=== PATIENT | male | born 1975 | race Caucasian/White ===

== ENCOUNTER 2021-02-28 08:26 | Day surgery (SDC) | payer MEDICAID ==
[~2021-02-28] VITALS: Ht 170.2 cm; Wt 61.8 kg
[2021-02-28] VITALS (7 sets, daily range): BP systolic 112–132; BP diastolic 65–80
[2021-02-28] MEDS ORDERED: albumin 25% 100mL bottle x 1 IV PRN (08:55)
[2021-02-28] MEDS ORDERED: CHOL20002 PO (09:05)
[2021-02-28] MEDS ORDERED: FURO40TA4 PO (09:05)
[2021-02-28] MEDS ORDERED: CALC650T22 PO (09:05)
[2021-02-28] MEDS ORDERED: PENT400T17 PO (09:05)
[2021-02-28] MEDS ORDERED: SPIR100T5 PO (09:05)
== END 2021-02-28 11:17 | disposition home or self-care (01) ==
LOC: SSTAY O 08:26
PROVIDERS: ATTEND Radiology Vascular & Interventional Radiology
DX: K70.31 Alcoholic cirrhosis of liver with ascites (principal); F12.90 Cannabis use, unspecified, uncomplicated; D75.89 Other specified diseases of blood and blood-forming organs; Z90.81 Acquired absence of spleen; F10.21 Alcohol dependence, in remission; Z87.891 Personal history of nicotine dependence; Z79.899 Other long term (current) drug therapy
CPT/HCPCS: 49083; P9047

== ENCOUNTER 2021-12-07 08:43 | Day surgery (SDC) | payer MEDICAID ==
[2021-12-02 16:44] LABS: BASOPHILS # (AUTO) 0.1 X10'3 (0-0.2); BASOPHILS % (AUTO) 1.1 % (0-1); EOSINOPHILS # (AUTO) 0.3 X10'3 (0-0.9); EOSINOPHILS % (AUTO) 3.7 % (0-6); LYMPHOCYTES # (AUTO) 2.1 X10'3 (1.1-4.8); LYMPHOCYTES % (AUTO) 23.5 % (21-51); MEAN CORPUSCULAR HEMOGLOBIN 34.7 PG (27.0-31.0); MEAN CORPUSCULAR HGB CONC 34.6 g/dL (33.0-36.5); MEAN CORPUSCULAR VOLUME 100.6 FL (78-98); MEAN PLATELET VOLUME 7.9 FL (7.4-10.4); MONOCYTES % (AUTO) 11.3 % (2-12); NEUTROPHILS # (AUTO) 5.5 X10'3 (1.8-7.7); NEUTROPHILS % (AUTO) 60.4 % (42-75); PRE OP HEMATOCRIT 41.8 % (42.0-52.0); PRE OP HEMOGLOBIN 14.4 g/dL (14.0-17.9); PRE OP PLATELET COUNT 299 X10'3 (140-440); RED BLOOD COUNT 4.15 X10'6 (4.70-6.10); RED CELL DISTRIBUTION WIDTH 13.9 % (11.5-14.5)
[2021-12-02 16:59] LABS: PRE OP INR 1.1 INR; PRE OP PROTIME 11.7 SECONDS (9.0-12.0)
[2021-12-02 17:03] LABS: ALBUMIN 3.6 G/DL (3.4-5.0); ALBUMIN/GLOBULIN RATIO 0.9 (1.1-1.5); ALKALINE PHOSPHATASE 144 IU/L (46-116); BLOOD UREA NITROGEN 27 MG/DL (7-18); BUN/CREATININE RATIO 22.7 (5.4-32.0); CALCIUM 9.3 MG/DL (8.5-10.1); CHLORIDE 104 MMOL/L (99-107); CREATININE 1.19 MG/DL (0.60-1.10); PRE OP ALT 37 U/L (30-65); PRE OP ANION GAP 8 (8-16); PRE OP AST 33 U/L (10-37); PRE OP BILIRUB, TOTAL 0.6 MG/DL (0.0-1.0); PRE OP POTASSIUM 4.4 MMOL/L (3.4-5.1); PRE OP SODIUM 140 MMOL/L (135-145); TOTAL CARBON DIOXIDE 27.6 MMOL/L (24-32); TOTAL PROTEIN 7.8 G/DL (6.4-8.2); eGFR 66 ML/MIN
[2021-12-02 17:05] LABS: PRE OP GLUCOSE 71 MG/DL (70-104)
[~2021-12-07] VITALS: Ht 170.2 cm; Wt 67.3 kg
[2021-12-07] VITALS (12 sets, daily range): BP systolic 99–127; BP diastolic 74–87
[~2021-12-07 08:43] MED LIST: CALC650T22 PO; CARV25TA2 PO; CHOL20002 PO; FURO40TA4 PO; MULT-436 PO; SPIR50TA5 PO; VITAMIN C; cefazolin/dext.iso 2gm/50ml IV ONE; famotidine 20mg tablet PO ONE
[2021-12-07] MEDS: ringers solution, lacted 1,000 ML IV SCH ×2 (10:38→16:30)
[2021-12-07] MEDS ORDERED: BUPIVAcaine 0.5% inj/PF 30 ML ONE (13:50)
[2021-12-07] MEDS ORDERED: bacitracin 15gm ointment TP ONE (14:13)
[2021-12-07] MEDS ORDERED: FENTANYL CITRATE/PF 50 MCG/1 ML VIAL ONE (14:39)
[2021-12-07] MEDS ORDERED: propofol inj 20 ML IV ONE (14:39)
[2021-12-07] MEDS ORDERED: midazolam 1 mg/ML 2ml injection ONE (14:39)
[2021-12-07] MEDS ORDERED: proCHLORperazine 10 MG/2 ml inj IV PRN (15:05)
[2021-12-07] MEDS ORDERED: ondansetron/PF 4mg/2ml inj IV PRN (15:05)
[2021-12-07] MEDS ORDERED: morphine 4 MG/ML inj SYRINge IV PRN (15:05)
[2021-12-07] MEDS ORDERED: meperidine/PF 25mg/ml syringe IV PRN ×3 (15:05)
[2021-12-07] MEDS ORDERED: morphine 2 MG/ML inj. syringe IV PRN (15:05)
[2021-12-07] MEDS ORDERED: ringers solution, lacted 1,000 ML IV SCH (15:05)
[2021-12-07] MEDS ORDERED: dexamethasone sod phosphate 4mg/ml inj. ONE (15:34)
[2021-12-07] MEDS ORDERED: morphine 10mg/ml inj. ONE (15:35)
--- NOTE | 2021-12-07 15:53 | NUR ---
Received from OR via STRETCHER , accompanied by Anesthesiologist DR UNGER and report given by Anesthesiolgist. VITAL SIGNS STABLE PT ON 10 LITER MASK, SLEEPY, BUT AROUSABLE, DENIES PAIN AT THIS TIME
--- NOTE | 2021-12-07 17:33 | NUR ---
PT MET DISCHARGE CRITERIA, ABD REMAINS SOFT, NO HEMATOMA OR BLEEDING NOTED, DERMABOND INPLACE. DISCHARGE INSTRUCTIONS GIVEN TO PT, HE VERBALIZED UNDERSTANDING, COPY OF WRITTEN INSTRUCTIONS ALSO GIVEN. PT WAS ABLE TO URINE PRIOR TO DISCHARGE WITHOUT GETTING LASIX ORDER.
[2021-12-07] MEDS ORDERED: furosemide 40mg/4ml inj IV ONE (17:35)
== END 2021-12-07 17:33 | disposition home or self-care (01) ==
LOC: PAS 08:43
PROVIDERS: ATTEND Surgery
DX: K40.91 Unilateral inguinal hernia, without obstruction or gangrene, recurrent (principal); K42.0 Umbilical hernia with obstruction, without gangrene; K70.30 Alcoholic cirrhosis of liver without ascites; Z98.890 Other specified postprocedural states; Z90.81 Acquired absence of spleen; Z91.030 Bee allergy status; Z79.899 Other long term (current) drug therapy; Z20.822 Contact with and (suspected) exposure to COVID-19
CPT/HCPCS: 36415; 49520; 49587; 80053; 82948; 85025; 85610; 85730; 93005; J1100; J2250; J2270; J2274; J2704; J3010; J7030; J7120; S0020; U0003; U0005; Z7506; Z7508; Z7512; A4215; A4618; A7000

== ENCOUNTER 2021-12-17 14:29 | Emergency (ER) | payer MEDICAID ==
[~2021-12-17] VITALS: Ht 170.2 cm; Wt 65.0 kg
[~2021-12-17 14:29] MED LIST changes: -cefazolin/dext.iso 2gm/50ml IV ONE; -famotidine 20mg tablet PO ONE
[2021-12-17] MEDS ORDERED: normal saline 1000ML IV soln IV ONE (15:05)
[2021-12-17 15:24] LABS: BASOPHILS % (AUTO) 0.5 % (0-1); EOSINOPHILS % (AUTO) 0 % (0-6); HEMATOCRIT 40.9 % (42.0-52.0); HEMOGLOBIN 14.4 g/dl (14.0-17.9); LYMPHOCYTES # (AUTO) 0.5 X10'3 (1.1-4.8); MEAN CORPUSCULAR HEMOGLOBIN 34.8 PG (27.0-31.0); MEAN CORPUSCULAR HGB CONC 35.3 g/dL (33.0-36.5); MEAN CORPUSCULAR VOLUME 98.7 FL (78-98); MEAN PLATELET VOLUME 7.5 FL (7.4-10.4); MONOCYTES # (AUTO) 0.3 X10'3 (0-0.9); MONOCYTES % (AUTO) 4.5 % (2-12); PLATELET COUNT 234 X10'3 (140-440); RED BLOOD COUNT 4.14 X10'6 (4.70-6.10); RED CELL DISTRIBUTION WIDTH 13.6 % (11.5-14.5); WHITE BLOOD COUNT 5.8 X10'3 (4.5-11.0)
[2021-12-17 15:39] LABS: ALANINE AMINOTRANSFERASE 43 U/L (12-78); ALBUMIN 3.2 G/DL (3.4-5.0); ALBUMIN/GLOBULIN RATIO 0.7 (1.1-1.5); ALKALINE PHOSPHATASE 138 IU/L (46-116); ANION GAP 11 (8-16); ASPARTATE AMINO TRANSFERASE 39 U/L (10-37); BILIRUBIN,TOTAL 0.5 MG/DL (0.1-1.0); BLOOD UREA NITROGEN 23 MG/DL (7-18); BUN/CREATININE RATIO 18.1 (5.4-32.0); CALCIUM 8.8 MG/DL (8.5-10.1); CHLORIDE 95 MMOL/L (99-107); CREATININE 1.27 MG/DL (0.60-1.10); GLUCOSE 146 MG/DL (70-104); MAGNESIUM 1.8 MG/DL (1.5-2.4); POTASSIUM 3.8 MMOL/L (3.5-5.1); SODIUM 129 MMOL/L (135-145); TOTAL CARBON DIOXIDE 23.1 MMOL/L (24-32); TOTAL PROTEIN 7.8 G/DL (6.4-8.2); eGFR 61 ML/MIN
[2021-12-17] MEDS ORDERED: iohexol 300mg/ml 100ml inj. ONE (16:56)
[2021-12-17 18:01] VITALS: BP 97/59
== END 2021-12-17 18:10 | disposition home or self-care (01) ==
LOC: ER 14:29
DX: U07.1 COVID-19 (principal); K85.90 Acute pancreatitis without necrosis or infection, unspecified; R50.9 Fever, unspecified; R51.9 Headache, unspecified; Z79.899 Other long term (current) drug therapy
CPT/HCPCS: 36415; 71045; 74177; 80053; 83605; 83735; 84145; 85025; 87040; 87635; 93005; 96360; 99285; C9803; J7030; Q9967

== ENCOUNTER 2021-12-28 09:01 | Day surgery (SDC) | payer MEDICAID ==
[2021-12-28] VITALS (13 sets, daily range): BP systolic 85–121; BP diastolic 54–78
[2021-12-28] MEDS ORDERED: midazolam 1 mg/ML 2ml injection ONE (10:46)
[2021-12-28] MEDS ORDERED: fentaNYL/PF 50MCG/1 ML 2ML syringe ONE (10:46)
[2021-12-28 10:47] LABS: BASOPHILS # (AUTO) 0.1 X10'3 (0-0.2); BASOPHILS % (AUTO) 0.9 % (0-1); EOSINOPHILS # (AUTO) 0.1 X10'3 (0-0.9); HEMATOCRIT 39.7 % (42.0-52.0); HEMOGLOBIN 13.3 g/dl (14.0-17.9); LYMPHOCYTES # (AUTO) 1.6 X10'3 (1.1-4.8); LYMPHOCYTES % (AUTO) 21.6 % (21-51); MEAN CORPUSCULAR HEMOGLOBIN 33.3 PG (27.0-31.0); MEAN CORPUSCULAR HGB CONC 33.6 g/dL (33.0-36.5); MEAN PLATELET VOLUME 7.1 FL (7.4-10.4); MONOCYTES # (AUTO) 0.8 X10'3 (0-0.9); NEUTROPHILS # (AUTO) 4.7 X10'3 (1.8-7.7); NEUTROPHILS % (AUTO) 64.5 % (42-75); PLATELET COUNT 475 X10'3 (140-440); RED BLOOD COUNT 4.01 X10'6 (4.70-6.10); RED CELL DISTRIBUTION WIDTH 14.1 % (11.5-14.5); WHITE BLOOD COUNT 7.3 X10'3 (4.5-11.0)
[2021-12-28] MEDS ORDERED: LIDOcaine 1% (10mg/ml)w/preservative inj. 20ml MDV ONE (10:49)
[2021-12-28] MEDS ORDERED: gelatin sponge, absorbable (Gelfoam 12-7MM) sponge TP ONE (10:51)
[2021-12-28] MEDS ORDERED: HYDROcodone/acetaminophen 5mg/325mg tablet PO PRN ×2 (11:30)
== END 2021-12-28 14:20 | disposition home or self-care (01) ==
LOC: SSTAY O 09:01
PROVIDERS: ATTEND Radiology Vascular & Interventional Radiology
DX: K86.89 Other specified diseases of pancreas (principal); Z79.899 Other long term (current) drug therapy; Z87.891 Personal history of nicotine dependence
CPT/HCPCS: 36415; 48102; 77012; 85025; 99152; 99153; J2250; J3010; J3490; 49180